=== PATIENT | male | born 1980 | race Caucasian/White ===

== ENCOUNTER 2021-02-27 05:36 | Emergency (ER) | payer MEDICARE, MEDICAID, SELFPAY ==
[2021-02-27 05:37] VITALS: BP 137/88; PULSE 100; RESP 16; TEMP 36.1; O2SAT 97; BMI 20.9
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
--- NOTE | 2021-02-27 06:19 | ED.RN ---
FATHER CATARINA MILLER [phone] [employer] [facility] [phone] [employer] [phone] FATHER REPORTS HE CANNOT COME GET HIM BUT [facility] CAN HELP GET HIM. CALLED [facility] x2, LEFT MESSAGE. CALLED [facility] FOR ASSISTANCE IN GETTING HIM BACK TO [place] VIA HIS INSURANCE THAT WILL PAY FOR A TAXI.
[2021-02-27 06:20] LABS: Bedside Glucose 94 mg/dL (70-110)
[2021-02-27 06:56] LABS: Bedside Glucose 112 mg/dL (70-110)
[2021-02-27 08:41] VITALS: BP 129/71; PULSE 91; RESP 16; O2SAT 98
[2021-02-27 10:06] VITALS: RESP 18
== END 2021-02-27 13:01 | disposition home or self-care (01) ==
PROVIDERS: Emergency Provider Emergency Medicine
DX: F31.9 Bipolar disorder, unspecified (principal); E11.9 Type 2 diabetes mellitus without complications; Z79.899 Other long term (current) drug therapy
CPT/HCPCS: 82962; 99283